=== PATIENT | female | born 1930 | race African-American/Black ===

== ENCOUNTER → 2016-08-25 | Outpatient (CLI) | payer MEDICARE, MEDICAID ==
[~2016-08-25] MED LIST: ALLE24TA PO; ENAL20TA81 PO; GLUCTAB PO; LOVA20TA PO
[2016-08-25 08:31] LABS: ALT (GPT) 12 U/L (10-53); ANION GAP 6 MEQ/L (5-15); AST (GOT) 11 U/L (15-37); BICARBONATE 24.1 MEQ/L (21.0-32.0); BLOOD UREA NITROGEN 31 MG/DL (7-18); CHLORIDE 111 MEQ/L (98-107); GLOMERULAR FILTRATION RATE 31 ML/MIN (>89); GLUCOSE,FASTING 108 MG/DL (74-99); POTASSIUM 4.9 MEQ/L (3.5-5.1); SODIUM (NA) 141 MEQ/L (136-145)
[2016-08-25 08:34] LABS: ALKALINE PHOSPHATASE 57 U/L (45-117); HDL CHOLESTEROL 59.8 MG/DL (40.0-60.0); LDL CHOLESTEROL 153 MG/DL (0-99); TOTAL BILIRUBIN ADULT 0.3 MG/DL (0.2-1.0)
[2016-08-25 08:39] LABS: CREATINE KINASE 71 U/L (26-192)
== END ==
LOC: CLAB 07:25
PROVIDERS: ATTEND Internal Medicine Interventional Cardiology
DX: E78.5 Hyperlipidemia, unspecified (principal); I10 Essential (primary) hypertension; Z09 Encounter for follow-up examination after completed treatment for conditions other than malignant neoplasm; Z79.899 Other long term (current) drug therapy
CPT/HCPCS: 36415; 80053; 80061; 82248; 82550

== ENCOUNTER → 2017-03-22 | Outpatient (CLI) | payer MEDICARE, MEDICAID ==
[2017-03-22 08:35] LABS: HEMATOCRIT 31.5 % (35.0-46.0); MEAN CELL VOLUME 90.2 FL (80.0-100.0); MEAN CORPUSCULAR HEMOGLOBIN 29.6 PG (27.0-34.0); MEAN CORPUSCULAR HGB CONC 32.8 % (32.0-36.0); PLATELET COUNT 147 TH/MM3 (150-450); RED BLOOD COUNT 3.49 MIL/MM3 (4.00-5.30); RED CELL DISTRIBUTION WIDTH 15.1 % (11.6-17.2); REVIEW FLAG FINAL; WHITE BLOOD COUNT 5.5 TH/MM3 (4.0-11.0)
== END ==
LOC: CLAB 08:06
DX: K92.2 Gastrointestinal hemorrhage, unspecified (principal)
CPT/HCPCS: 36415; 85027

== ENCOUNTER 2017-10-13 11:48 | Emergency (ER) | payer MEDICAID, MEDICARE ==
[~2017-10-13] VITALS: Ht 160 cm; Wt 56.0 kg
[2017-10-13 11:55] VITALS: BP 177/72; PULSE 94; RESP 16; TEMP 98.8; O2SAT 98
[2017-10-13 12:12] VITALS: BP 152/67; PULSE 79; RESP 18; O2SAT 98
[2017-10-13] MEDS ORDERED: ENAL20TA PO (12:17)
[2017-10-13] MEDS ORDERED: METF500T4 PO (12:17)
[2017-10-13] MEDS ORDERED: DICL50TA3 PO (12:42)
[2017-10-13] MEDS ORDERED: NEOM0.1S4 RIGHT EAR (12:42)
[2017-10-13] MEDS ORDERED: CIPR-9 PO (12:42)
--- NOTE | 2017-10-13 12:55 | PD ---
HPI Chief Complaint: ENT Complaint Time Seen by Provider: 12:02 Travel History International Travel<30 days: No Contact w/Intl Traveler<30days: No Traveled to known affect area: No History of Present Illness HPI 87 yo female here for evaluation of right ear pain. Per patient has had this for 3 weeks. Went to see a doctor at [facility] and had a CT scan that was negative. Given azithromycin and finish it with no good results. Per patient does not really feel like pain more more like an annoyance to her ear on her ear feels clogged. She denies any congestion. No fevers chills or sweats. The patient radiates to her neck. No history of this in the past. Per patient she is hoping to get a referral to an ear nose and throat. She denies any chest pain or shortness of breath. Per patient the pain is 6 out of 10. Has not seen anybody else for this. Other medical issues. She states compliance with antibiotic given to her. She is applying some OTC pain patches to help with her discomfort with some relief. PFSH Past Medical History Anemia: Yes Arthritis: Yes Asthma: No Autoimmune Disease: No Blood Disorders: No Anxiety: No Depression: No Heart Rhythm Problems: No Cancer: No Cardiovascular Problems: Yes (HYPERTENSION ) High Cholesterol: Yes Chemotherapy: No Chest Pain: No Congestive Heart Failure: No COPD: No Cerebrovascular Accident: No Diabetes: Yes Patient Takes Glucophage: Yes (10/12/17) Diminished Hearing: No Endocrine: Yes Gastrointestinal Disorders: Yes GERD: No Glaucoma: Yes Genitourinary: No Headaches: Yes Hepatitis: No Hiatal Hernia: No Hypertension: Yes Immune Disorder: No Kidney Stones: No Musculoskeletal: Yes Neurologic: No Psychiatric: No Reproductive: No Respiratory: No Resp. Syncytial Virus (RSV): No Migraines: No Myocardial Infarction: No Radiation Therapy: No Renal Failure: No Seizures: No Sickle Cell Disease: No Sleep Apnea: No Thyroid Disease: No Ulcer: Yes ?: Not Menopausal: Yes Tubal Ligation: Yes Past Surgical History Abdominal Surgery: Yes AICD: No Appendectomy: No Arteriovenous Shunt: No Cardiac Surgery: No Cholecystectomy: No Ear Surgery: No Endocrine Surgery: No Eye Surgery: No Genitourinary Surgery: No Gynecologic Surgery: No Insulin Pump: No Joint Replacement: No Oral Surgery: No Pacemaker: No Thoracic Surgery: No Other Surgery: Yes Social History Alcohol Use: No Tobacco Use: No Substance Use: No Allergies-Medications (Allergen,Severity, Reaction): Coded Allergies: sulfamethoxazole (Unverified Allergy, Severe, 10/13/17) trimethoprim (Unverified Allergy, Severe, 10/13/17) Reported Meds & Prescriptions Reported Meds & Active Scripts Active Diclofenac Sodium DR (Diclofenac Sodium) 50 Mg Tabdr 50 Mg PO BID PRN Awpyjk-Ilybf-Qwnfrtqb Eye Drop (Neomycin/Polymyxin B/Dexametha) 3.5 Mg/Ml-10, 000 Unit/Ml-0.1 % Drops.susp 4 Drop RIGHT EAR TID 10 Days Cipro (Ciprofloxacin HCl) 500 Mg Tab 500 Mg PO BID 10 Days Reported Enalapril (Enalapril Maleate) 20 Mg Tab 20 Mg PO DAILY Metformin ER (Metformin HCl) 500 Mg Araceli 500 Mg PO DAILY With evening meal Review of Systems Except as stated in HPI: all other systems reviewed are Neg Physical Exam Narrative GENERAL: Well-nourished, well-developed patient in no apparent distress. SKIN: Warm and dry. HEAD: Atraumatic. Normocephalic. EYES: Pupils equal and round reactive to light and accommodation. No scleral icterus. No injection or drainage. ENT: No nasal bleeding or discharge. Mucous membranes pink and moist. Right TM is slightly erythematous and slightly bulging. Left TM appears to be intact. There is some inflammation of the ear canal bilaterally with what appears to be some discharge. no mastoid tenderness. Ear canals are intact bilaterally. No lymphadenopathy. Nostril mucosa is red and moist with clear mucus noted. No sinus tenderness to palpation noted. Tonsils are not enlarged or swollen. No ulvua Deviation. Tongue is midline. Some of the pain on the neck appears to touch. NECK: Trachea midline. No JVD. No meningeal signs noted CARDIOVASCULAR: Regular rate and rhythm. RESPIRATORY: No accessory muscle use. Clear to auscultation. Breath sounds equal bilaterally. GASTROINTESTINAL: Abdomen soft, non-tender, nondistended. Hepatic and splenic margins not palpable. MUSCULOSKELETAL: Extremities without clubbing, cyanosis, or edema. No obvious deformities. NEUROLOGICAL: Awake and alert. No obvious cranial nerve deficits. Motor grossly within normal limits. Five out of 5 muscle strength in the arms and legs. Normal speech. PSYCHIATRIC: Appropriate mood and affect; insight and judgment normal. Data Data Last Documented VS Vital Signs Date Time Temp Pulse Resp B/P (MAP) Pulse Ox O2 Delivery O2 Flow Rate FiO2 10/13/17 12:12 79 18 152/67 (95) 98 Room Air 10/13/17 11:55 98.8 Orders Orders Ed Discharge Order (10/13/17 12:47) MDM Medical Decision Making Medical Screen Exam Complete: Yes Emergency Medical Condition: Yes Medical Record Reviewed: Yes Differential Diagnosis Otitis media versus otitis externa versus sinusitis versus muscle strain versus acute on chronic pain Narrative Course 87-year-old female who presents to the ED for evaluation of right ear pain. Patient was properly examined and was found to have signs and symptoms of what appears to be possible otitis media versus externa versus both. Some of the pain appears to be muscular on the cervical musculature rather than infectious. Ear itself does not appear to be significantly infected. Patient already took azithromycin with minimal relief. At this time I recommend trial of drops as well as anti-inflammatories and cipro to cover for any other infection. Apparently patient already had a CT scan that was essentially unremarkable. Patient prefers not to have another CT scan here. This also. She does want possible to get a referral to ear nose and throat. There were a couple names to follow-up for. She was instructed that if anything worsens to come back to the ED. Otherwise follow-up with PCP. See ED if worsening symptoms. Case was discussed with my attending who agrees with plan. Diagnosis Primary Impression: Ear pain, right Additional Impression: Otitis externa Qualified Codes: H60.501 - Unspecified acute noninfective otitis externa, right ear Referrals: Eliseo Harper MD, Joseph P. MD Patient Instructions: General Instructions Additional Instructions: Take medications as prescribed. Follow-up with ENT. See ED worsening symptoms. Call the offices to make an appointment. Med/Other Pt SpecificInfo: Prescription(s) given Scripts Diclofenac Sodium (Diclofenac Sodium DR) 50 Mg Tabdr 50 MG PO BID Y for PAIN SCALE 1 TO 10, #20 TAB 0 Refills Prov: TalaveraJuhi Heather DO 10/13/17 Neomycin/Polymyxin B/Dexametha (Nfaabo-Yytmv-Cyzamxrr Eye Drop) 3.5 Mg/Ml-10, 000 Unit/Ml-0.1 % Drops.susp 4 DROP RIGHT EAR TID for 10 Days Prov: Juhi Talavera DO 10/13/17 Ciprofloxacin (Cipro) 500 Mg Tab 500 MG PO BID for Infection for 10 Days, #20 TAB 0 Refills Prov: Juhi Talavera DO 10/13/17 Disposition: 01 DISCHARGE HOME Condition: Stable Cali Hector Oct 13, 2017 12:55
[2017-10-13 13:09] VITALS: BP 150/65
== END 2017-10-13 13:09 | disposition home or self-care (01) ==
LOC: NEPC 11:48
DX: H60.91 Unspecified otitis externa, right ear (principal); D64.9 Anemia, unspecified; I10 Essential (primary) hypertension; E11.9 Type 2 diabetes mellitus without complications; E78.00 Pure hypercholesterolemia, unspecified; H40.9 Unspecified glaucoma; Z79.899 Other long term (current) drug therapy; Z88.2 Allergy status to sulfonamides; Z88.8 Allergy status to other drugs, medicaments and biological substances
CPT/HCPCS: 99283

== ENCOUNTER → 2017-10-24 | Outpatient (CLI) | payer MEDICAID, MEDICARE ==
[~2017-10-24] MED LIST changes: -ALLE24TA PO; +CIPR-9 PO; +DICL50TA3 PO; +ENAL20TA PO; -ENAL20TA81 PO; -GLUCTAB PO; -LOVA20TA PO; +METF500T4 PO; +NEOM0.1S4 RIGHT EAR
[2017-10-24 08:32] LABS: AUTOMATED NEUTROPHIL # 2.3 TH/MM3 (1.8-7.7); BASOPHIL % 0.4 % (0.0-2.0); EOSINOPHIL # 0.1 TH/MM3 (0-0.4); HEMATOCRIT 29.5 % (35.0-46.0); HEMOGLOBIN 9.5 GM/DL (11.6-15.3); LYMPHOCYTE # 1.5 TH/MM3 (1.0-4.8); MEAN CELL VOLUME 88.9 FL (80.0-100.0); MEAN CORPUSCULAR HEMOGLOBIN 28.7 PG (27.0-34.0); MEAN CORPUSCULAR HGB CONC 32.3 % (32.0-36.0); MEAN PLATELET VOLUME 8.2 FL (7.0-11.0); MONO % 8.3 % (0.0-8.0); MONOCYTE # 0.4 TH/MM3 (0-0.9); NEUT % 53.3 % (16.0-70.0); PLATELET COUNT 180 TH/MM3 (150-450); RED BLOOD COUNT 3.32 MIL/MM3 (4.00-5.30); RED CELL DISTRIBUTION WIDTH 14.3 % (11.6-17.2); WHITE BLOOD COUNT 4.3 TH/MM3 (4.0-11.0)
[2017-10-24 08:42] LABS: ALBUMIN 3.7 GM/DL (3.4-5.0); ALT (GPT) 13 U/L (10-53); AST (GOT) 14 U/L (15-37); BICARBONATE 20.9 MEQ/L (21.0-32.0); BLOOD UREA NITROGEN 35 MG/DL (7-18); CALCIUM 8.6 MG/DL (8.5-10.1); CHLORIDE 112 MEQ/L (98-107); CHOLESTEROL 266 MG/DL (120-200); CREATININE 2.22 MG/DL (0.50-1.00); GLOMERULAR FILTRATION RATE 25 ML/MIN (>89); GLUCOSE,FASTING 82 MG/DL (74-99); SODIUM (NA) 142 MEQ/L (136-145)
[2017-10-24 08:51] LABS: ALKALINE PHOSPHATASE 42 U/L (45-117); CHOLESTEROL/ HDL RATIO 3.98 RATIO; HDL CHOLESTEROL 66.8 MG/DL (40.0-60.0); LDL CHOLESTEROL 178 MG/DL (0-99); TOTAL BILIRUBIN ADULT 0.3 MG/DL (0.2-1.0); TOTAL PROTEIN 7.3 GM/DL (6.4-8.2); TRIGLYCERIDES 108 MG/DL (42-150)
[2017-10-24 17:05] LABS: HEMOGLOBIN A1C 5.1 % (4.3-6.0)
== END ==
LOC: CLAB 07:39
DX: E03.9 Hypothyroidism, unspecified (principal); E11.9 Type 2 diabetes mellitus without complications; E78.5 Hyperlipidemia, unspecified; D64.9 Anemia, unspecified; Z13.228 Encounter for screening for other metabolic disorders
CPT/HCPCS: 36415; 80053; 80061; 83036; 84443; 85025